=== PATIENT | female | born 1975 | race Hispanic/Latino ===

== ENCOUNTER 2017-02-01 22:30 | Emergency (ER) | payer OTHER ==
[2017-02-01 22:40] VITALS: BP 127/84; RESP 16; TEMP 97; O2SAT 100
[2017-02-01] MEDS ORDERED: Alum-Mag Hydrox-Simethicone Susp (30 mL) PO ONE (23:02)
[2017-02-01] MEDS ORDERED: Alum-Mag Hydrox-Simethicone Susp (30 mL) ONE (23:11)
--- NOTE | 2017-02-01 23:34 | ED PDOC ---
HPI: Chest Pain Time Seen by Provider: 02/01/17 22:52 Chief Complaint (Nursing): Chest Pain Chief Complaint (Provider): Chest Pain History Per: Patient History/Exam Limitations: no limitations Onset/Duration Of Symptoms: Hrs Current Symptoms Are (Timing): Still Present Associated Symptoms: denies: Nausea, Syncope Additional Complaint(s): 41 y/o female patient presenting to the ED with Epigastric pain and chest pain. Patient states the pain began occurring after eating cupcakes and drinking alcohol. The patient states the pain came on suddenly and has never felt this type of pain before. Patient denies shortness of breath, nausea or vomiting. And the patient has no past medical history. Past Medical History Reviewed: Historical Data, Nursing Documentation, Vital Signs Vital Signs: Last Vital Signs Temp 97.0 F L 02/01/17 22:39 Pulse 97 H 02/01/17 23:40 Resp 16 02/01/17 22:39 BP 127/84 02/01/17 22:39 Pulse Ox 100 02/01/17 23:40 - Medical History PMH: No Chronic Diseases - Surgical History Surgical History: No Surg Hx - Family History Family History: States: Unknown Family Hx - Social History Current smoker - smoking cessation education provided: No Alcohol: None Drugs: Denies - Home Medications Home Medications: Ambulatory Orders Medication Instructions Recorded Famotidine [Pepcid] 20 mg PO BID #20 tab 02/01/17 - Allergies Allergies/Adverse Reactions: Allergies Allergy/AdvReac Type Severity Reaction Status Date / Time No Known Allergies Allergy Verified 02/01/17 22:36 Review of Systems ROS Statement: Except As Marked, All Systems Reviewed And Found Negative Cardiovascular: Positive for: Chest Pain Respiratory: Negative for: Cough, Shortness of Breath Gastrointestinal: Positive for: Abdominal Pain. Negative for: Nausea, Vomiting Physical Exam - Reviewed Nursing Documentation Reviewed: Yes Vital Signs Reviewed: Yes - Physical Exam Appears: Positive for: Non-toxic, No Acute Distress Head Exam: Positive for: ATRAUMATIC, NORMAL INSPECTION, NORMOCEPHALIC Skin: Positive for: Normal Color, Warm, Dry Neck: Positive for: Normal, Painless ROM, Supple Cardiovascular/Chest: Positive for: Regular Rate, Rhythm, Chest Non Tender. Negative for: Murmur Respiratory: Positive for: Normal Breath Sounds. Negative for: Wheezing, Respiratory Distress Gastrointestinal/Abdominal: Positive for: Other ((+)EPIGASTRIC TENDERNESS, (-) RUQ TENDERNESS) Extremity: Positive for: Normal ROM Neurologic/Psych: Positive for: Alert, Oriented. Negative for: Motor/Sensory Deficits - ECG ECG Rhythm: Positive for: Sinus Rhythm. Negative for: ST/T Changes Rate: 97 O2 Sat by Pulse Oximetry: 100 (RA) Pulse Ox Interpretation: Normal Medical Decision Making Medical Decision Making: Time: 2238 Initial impression: Gastritis Initial plan: --Aluminum Hydroxide/Magnesium --Famotidine --Lidocaine --EKG --EKG-ED 5 Pt. reports resolution of symptoms. Drank water without return of symptoms. Return precautions given. Told patient to f/u w/ Dr. Phillip, script for pepcid given. Scribe Attestation: Documented by Marisol Cho, acting as a scribe for Jonatan Quinn MD. Scribe Attestation: All medical record entries made by the Scribe were at my direction and personally dictated by me. I have reviewed the chart and agree that the record accurately reflects my personal performance of the history, physical exam, medical decision making, and the department course for this patient. I have also personally directed, reviewed, and agree with the discharge instructions and disposition. Disposition - Clinical Impression Clinical Impression: Epigastric pain, Gastritis - Disposition Referrals: Laila Hagan MD [Family Provider] - Disposition Time: 23:15 Condition: STABLE Prescriptions: Famotidine [Pepcid] 20 mg PO BID #20 tab Instructions: Gastritis (ED), Diet for Ulcers and Gastritis (ED)
[2017-02-01 23:35] VITALS: PULSE 97
--- NOTE | 2017-02-02 11:27 | CARD ---
APPROVED REPORT EKG Measurement Heart [id number] <Conclusion> Normal sinus rhythm Normal ECG
== END 2017-02-02 00:24 | disposition home or self-care (01) ==
LOC: H.ER 22:30
DX: K29.70 Gastritis, unspecified, without bleeding (principal)